=== PATIENT | female | born 1990 | race African-American/Black ===

== ENCOUNTER 2016-12-14 12:16 | Emergency (ER) | payer OTHER ==
[2016-12-14 12:25] VITALS: BP 129/86
[2016-12-14 12:49] LABS: BILIRUBIN,URINE NEGATIVE (NEGATIVE); PH,URINE 7.5 PH (5.0-7.5)
[2016-12-14 12:50] LABS: UA w/ MICROSCOPIC CHARGE YES
[2016-12-14 12:59] LABS: HCG UR QUAL NEGATIVE
--- NOTE | 2016-12-14 13:01 | ED Physician Documentation ---
PD HPI FEMALE - Stated complaint Stated Complaint: FEMALE /??? - Chief complaint Chief Complaint: General - History obtained from History obtained from: Patient - History of Present Illness Timing - onset: Yesterday Timing - duration: Days (1) Timing - details: Abrupt onset, Still present Associated symptoms: Dysuria, Urinary frequency, Hematuria. No: Fever, Back pain, Vaginal discharge, Genital sore/lesion Contributing factors: No: (she is slightly late but not known ) Similar symptoms before: Has not had sx before Recently seen: Not recently seen Review of Systems Constitutional: denies: Fever, Chills GI: denies: Nausea, Vomiting, Diarrhea : reports: Dysuria, Frequency, LMP (5 weeks ago). denies: Discharge PD PAST MEDICAL HISTORY - Past Medical History Past Medical History: No - Past Surgical History Past Surgical History: No - Present Medications Home Medications: Ambulatory Orders Medication Instructions Recorded Confirmed Phenazopyridine [Pyridium] 200 mg PO TID PRN #15 tablet 12/14/16 Sulfamethox/Trimeth 800/160 1 each PO BID #10 tablet 12/14/16 [Bactrim Ds 800/160] - Allergies Allergies/Adverse Reactions: Allergies Allergy/AdvReac Type Severity Reaction Status Date / Time No Known Drug Allergies Allergy Verified 12/14/16 12:25 - Social History Does the pt smoke?: No Smoking Status: Never smoker Does the pt drink ETOH?: Yes ETOH Use: Wine Does the pt have substance abuse?: No - Immunizations Immunizations are current?: Yes - POLST Patient has POLST: No PD ED PE NORMAL - Vitals Vital signs reviewed: Yes - General General: Alert and oriented X 3, No acute distress, Well developed/nourished - Abdomen Abdomen: Soft, Non tender - Female Female : Deferred - Back Back: No CVA TTP - Derm Derm: Normal color, Warm and dry Results - Vitals Vitals: Oxygen O2 Source Room air - Labs Labs: Microbiology 12/14/16 12:35 Urine Culture - Final Urine,Clean Catch Escherichia Coli Laboratory Tests 12/14/16 12:35 Urine Color YELLOW Urine Clarity SL. CLOUDY Urine pH 7.5 Ur Specific Amasa 1.025 Urine Protein 100 H Urine Glucose (UA) NEGATIVE Urine Ketones NEGATIVE Urine Occult Blood LARGE H Urine Nitrite NEGATIVE Urine Bilirubin NEGATIVE Urine Urobilinogen 0.2 (NORMAL) Ur Leukocyte Esterase MODERATE H Urine RBC 6-10 H Urine WBC >25 H Ur Squamous Epith Cells FEW Squamous Urine Bacteria Many H Ur Microscopic Review INDICATED Urine Culture Comments INDICATED Urine HCG, Qual NEGATIVE PD MEDICAL DECISION MAKING - ED course Complexity details: reviewed results, considered differential, d/w patient Departure - Departure Disposition: 01 Home, Self Care Clinical Impression: UTI (urinary tract infection) Qualifiers: Urinary tract infection type: acute cystitis Hematuria presence: without hematuria Qualified Code(s): N30.00 - Acute cystitis without hematuria Clinical Impression: (Ruled Out): Early stage of Condition: Stable Record reviewed to determine appropriate education?: Yes Instructions: ED UTI Cystitis Female Follow-Up: [facility] [Provider Group] Prescriptions: Phenazopyridine [Pyridium] 200 mg PO TID PRN #15 tablet PRN Reason: Pain Sulfamethox/Trimeth 800/160 [Bactrim Ds 800/160] 1 each PO BID #10 tablet Comments: Drink lots of fluids. Use Tylenol or ibuprofen if needed for discomfort. Phenazopyridine can be used to numb the inside of the bladder as it has that effect as to being excreted from her system. It will turn her urine a little orange colored so not to worry. We will treat the infection with Bactrim twice daily for 5 days. Will do a culture of urine and if it shows resistance to the antibiotic we will call you in 2 or 3 days. Otherwise recheck if not improved over the next 2-3 days return sooner if worsening. We did do a test that was negative. Discharge Date/Time: 12/14/16 13:30
[2016-12-14 13:02] LABS: UR CULTURE IF IND INDICATED; WBC,URINE >25 /HPF (0-5)
[2016-12-14] MEDS ORDERED: SULFAMETH/TRIMETH DS 800/160 MG TABLET PO STA (13:24)
[2016-12-14] MEDS ORDERED: PHENAZOPYRIDINE 100 MG TABLET PO STA (13:24)
[2016-12-14] MEDS ORDERED: SULFAMETH/TRIMETH DS 800/160 MG TABLET PO ONE (13:32)
[2016-12-14] MEDS ORDERED: PHENAZOPYRIDINE 100 MG TABLET PO ONE (13:33)
== END 2016-12-14 13:30 | disposition home or self-care (01) ==
LOC: ED 12:16
DX: N30.00 Acute cystitis without hematuria (principal)
CPT/HCPCS: 81001; 81025; 87086; 87181; 99283; A9270; 81003